=== PATIENT | female | born 2000 | race Caucasian/White ===

== ENCOUNTER 2020-12-21 20:54 | Emergency (ER) | payer OTHER ==
[2020-12-21 20:59] VITALS: RESP 18; TEMP 98.9
[2020-12-21] MEDS ORDERED: SODIUM CHLORIDE 0.9% 1,000 ML IV STA (21:18)
[2020-12-21] MEDS ORDERED: ONDANSETRON 4 MG/2 ML VIAL IVP STA (21:18)
[2020-12-21] MEDS ORDERED: HYDROmorphone 0.5 MG/0.5 ML SYRINGE IVP STA (21:18)
--- NOTE | 2020-12-21 21:34 | ED ---
Abdominal Pain HPI - General Chief Complaint: Abdominal Pain Stated Complaint: Abd pain Time Seen by Provider: 12/21/20 21:00 Source: patient Mode of arrival: ambulatory Limitations: no limitations - History of Present Illness Initial Comments: 20-year-old female patient presents to the emergency department today for evaluation of right lower quadrant abdominal pain. Patient states she's had pain on and off for the last week the pain has worsened significantly over the last couple of days. States she has had no appetite and mild nausea. Denies any constipation or diarrhea. Denies any fever or chills. Denies any hematuria, dysuria, urinary frequency, urinary urgency. Denies any known history of ovarian cyst. Denies abnormal vaginal bleeding or discharge. Denies concern for sexual transmitted infections. She does not currently take control. Patient denies any recent rash, cough, shortness of breath, chest pain, back pain, numbness, tingling, dizziness, weakness, headache, visual changes, or any other complaints. - Related Data Previous Rx's Medication Instructions Recorded Ibuprofen [Motrin] 600 mg PO Q8HR PRN #30 tab 12/22/20 Allergies Allergy/AdvReac Type Severity Reaction Status Date / Time methylphenidate HCl Allergy Unknown Verified 12/21/20 21:43 [From [employer]] Review of Systems ROS Statement: Those systems with pertinent positive or pertinent negative responses have been documented in the HPI. ROS Other: All systems not noted in ROS Statement are negative. Past Medical History Past Medical History: No Reported History History of Any Multi-Drug Resistant Organisms: None Reported Additional Past Surgical History / Comment(s): cleft lip repair Past Psychological History: ADD/ADHD, Anxiety Smoking Status: Current every day smoker Past Alcohol Use History: Occasional Past Drug Use History: None Reported General Exam Limitations: no limitations General appearance: alert, in no apparent distress, other (this is a well- developed, well-nourished adult female patient in no acute distress.) Eye exam: Present: normal appearance, PERRL, EOMI. Absent: scleral icterus, con junctival injection, periorbital swelling ENT exam: Present: normal exam, normal oropharynx, mucous membranes moist Respiratory exam: Present: normal lung sounds bilaterally. Absent: respiratory distress, wheezes, rales, rhonchi, stridor Cardiovascular Exam: Present: regular rate, normal rhythm, normal heart sounds. Absent: systolic murmur, diastolic murmur, rubs, gallop, clicks GI/Abdominal exam: Present: soft, tenderness (Right lower quadrant tenderness; periumbilical tenderness), normal bowel sounds. Absent: distended, guarding, rebound, rigid Neurological exam: Present: alert, oriented X3, CN II-XII intact Psychiatric exam: Present: normal affect, normal mood Skin exam: Present: warm, dry, intact, normal color. Absent: rash Course Vital Signs 12/21/20 12/22/20 20:57 00:39 Temperature 98.9 F Pulse Rate 90 90 Respiratory 18 18 Rate Blood Pressure 147/85 124/91 O2 Sat by Pulse 100 99 Oximetry Medical Decision Making - Medical Decision Making 20 year-old female patient presents to the emergency department for evaluation of lower abdominal pain. She was seen at urgent care and sent after they found right lower quadrant tenderness. Physical examination here did reveal periumbilical tenderness and right lower quadrant tenderness. Labs reviewed and showed elevated WBC count. CT obtained showed large ovarian cyst 7cm. US transvaginal were obtained and showed 6.5cm cyst. No visualization of the left ovary. Patient is resting comfortable in bed. She will be discharged to follow up with OBGYN as soon as possible. return parameters discussed in detail. She verbalizes understanding and agrees with this plan. Case discussed in detail my attending Dr. Villarreal who recommends discharge home with follow-up outpatient. - Lab Data Result diagrams: 12/21/20 21:37 12/21/20 21:37 Lab Results 12/21/20 12/21/20 12/21/20 Range/Units 21:37 21:37 21:37 WBC 11.2 H (3.8-10.6) k/uL RBC 4.48 (3.80-5.40) m/uL Hgb 11.9 (11.4-16.0) gm/dL Hct 35.8 (34.0-46.0) % MCV 79.9 L (80.0-100.0) fL MCH 26.6 (25.0-35.0) pg MCHC 33.3 (31.0-37.0) g/dL RDW 14.3 (11.5-15.5) % Plt Count 285 (150-450) k/uL MPV 7.8 Neutrophils % 69 % Lymphocytes % 22 % Monocytes % 6 % Eosinophils % 1 % Basophils % 1 % Neutrophils # 7.7 (1.3-7.7) k/uL Lymphocytes # 2.5 (1.0-4.8) k/uL Monocytes # 0.6 (0-1.0) k/uL Eosinophils # 0.1 (0-0.7) k/uL Basophils # 0.1 (0-0.2) k/uL Sodium (137-145) mmol/L Potassium (3.5-5.1) mmol/L Chloride (98-107) mmol/L Carbon Dioxide (22-30) mmol/L Anion Gap mmol/L BUN (7-17) mg/dL Creatinine (0.52-1.04) mg/dL Est GFR (CKD-EPI)AfAm (>60 ml/min/1.73 sqM) Est GFR (CKD-EPI)NonAf (>60 ml/min/1.73 sqM) Glucose (74-99) mg/dL Plasma Lactic Acid Roderick (0.7-2.0) mmol/L Calcium (8.4-10.2) mg/dL Total Bilirubin (0.2-1.3) mg/dL AST (14-36) U/L ALT (4-34) U/L Alkaline Phosphatase (38-126) U/L Total Protein (6.3-8.2) g/dL Albumin (3.5-5.0) g/dL Lipase (23-300) U/L Urine Color Light Yellow Urine Appearance Cloudy H (Clear) Urine pH 6.5 (5.0-8.0) Ur Specific Moran 1.013 (1.001-1.035) Urine Protein Negative (Negative) Urine Glucose (UA) Negative (Negative) Urine Ketones Negative (Negative) Urine Blood Negative (Negative) Urine Nitrite Negative (Negative) Urine Bilirubin Negative (Negative) Urine Urobilinogen <2.0 (<2.0) mg/dL Ur Leukocyte Esterase Small H (Negative) Urine RBC 2 (0-5) /hpf Urine WBC 4 (0-5) /hpf Ur Squamous Epith Cells 6 H (0-4) /hpf Urine Bacteria Few H (None) /hpf Urine Yeast (Budding) Few H (None) /hpf Urine HCG, Qual Not Detected (Not Detectd) 12/21/20 12/21/20 Range/Units 21:37 21:37 WBC (3.8-10.6) k/uL RBC (3.80-5.40) m/uL Hgb (11.4-16.0) gm/dL Hct (34.0-46.0) % MCV (80.0-100.0) fL MCH (25.0-35.0) pg MCHC (31.0-37.0) g/dL RDW (11.5-15.5) % Plt Count (150-450) k/uL MPV Neutrophils % % Lymphocytes % % Monocytes % % Eosinophils % % Basophils % % Neutrophils # (1.3-7.7) k/uL Lymphocytes # (1.0-4.8) k/uL Monocytes # (0-1.0) k/uL Eosinophils # (0-0.7) k/uL Basophils # (0-0.2) k/uL Sodium 136 L (137-145) mmol/L Potassium 4.0 (3.5-5.1) mmol/L Chloride 102 (98-107) mmol/L Carbon Dioxide 25 (22-30) mmol/L Anion Gap 9 mmol/L BUN 11 (7-17) mg/dL Creatinine 1.07 H (0.52-1.04) mg/dL Est GFR (CKD-EPI)AfAm 86 (>60 ml/min/1.73 sqM) Est GFR (CKD-EPI)NonAf 75 (>60 ml/min/1.73 sqM) Glucose 99 (74-99) mg/dL Plasma Lactic Acid Roderick 1.0 (0.7-2.0) mmol/L Calcium 9.4 (8.4-10.2) mg/dL Total Bilirubin 0.3 (0.2-1.3) mg/dL AST 16 (14-36) U/L ALT 11 (4-34) U/L Alkaline Phosphatase 64 (38-126) U/L Total Protein 6.9 (6.3-8.2) g/dL Albumin 4.0 (3.5-5.0) g/dL Lipase 91 (23-300) U/L Urine Color Urine Appearance (Clear) Urine pH (5.0-8.0) Ur Specific Moran (1.001-1.035) Urine Protein (Negative) Urine Glucose (UA) (Negative) Urine Ketones (Negative) Urine Blood (Negative) Urine Nitrite (Negative) Urine Bilirubin (Negative) Urine Urobilinogen (<2.0) mg/dL Ur Leukocyte Esterase (Negative) Urine RBC (0-5) /hpf Urine WBC (0-5) /hpf Ur Squamous Epith Cells (0-4) /hpf Urine Bacteria (None) /hpf Urine Yeast (Budding) (None) /hpf Urine HCG, Qual (Not Detectd) - Radiology Data Radiology results: report reviewed, image reviewed Two-view x-ray of the abdomen is obtained. A prescription entirety. Impression by Dr. Negrete shows nonacute abdomen. CT abdomen and pelvis with contrast was obtained. Report was reviewed in its entirety. Impression by Dr. Negrete shows large cyst in the pelvis is probably from the left ovary. Normal appendix. No renal stone or obstruction. Ultrasound of the pelvis is obtained. Report reviewed in its entirety. Impression by Dr. Charles shows left ovary is not visualized. There are 6.5 cm system left adnexal region presumably ovarian etiology which is worrisome based on size criteria. Magnetic resonance imaging of the pelvis were provided additional information to add agree with concern. At the very least reimaging in 2 months. Fluids right ovary is noted. Minimal free fluid in the right adnexa extending to the cul-de-sac. Disposition Clinical Impression: Ovarian cyst Disposition: HOME SELF-CARE Condition: Good Instructions (If sedation given, give patient instructions): Ovarian Cyst (ED) Additional Instructions: Take pain medication as directed. Follow-up with the primary care physician for recheck in 1-2 days. Follow-up with [facility] for recheck as soon as possible. Return to the emergency department for any new, worsening, or concerning symptoms. Prescriptions: Ibuprofen [Motrin] 600 mg PO Q8HR PRN #30 tab PRN Reason: Pain Is patient prescribed a controlled substance at d/c from ED?: No Referrals: Sarah Mckenzie MD [STAFF PHYSICIAN] - 1-2 days Time of Disposition: 01:01
[2020-12-21 21:40] VITALS: PULSE 90
[2020-12-21 21:57] LABS: Basophils # (A) 0.1 k/uL (0-0.2); Basophils % (A) 1 %; Eosinophils # (A) 0.1 k/uL (0-0.7); Eosinophils % (A) 1 %; HCT 35.8 % (34.0-46.0); HGB 11.9 gm/dL (11.4-16.0); Lymphocytes # (A) 2.5 k/uL (1.0-4.8); Lymphocytes % (A) 22 %; MCH 26.6 pg (25.0-35.0); MCHC 33.3 g/dL (31.0-37.0); MCV 79.9 fL (80.0-100.0); Mean Platelet Volume 7.8; Monocytes # (A) 0.6 k/uL (0-1.0); Monocytes % (A) 6 %; Neutrophils # (A) 7.7 k/uL (1.3-7.7); Neutrophils % (A) 69 %; Platelet Count 285 k/uL (150-450); RBC 4.48 m/uL (3.80-5.40); RDW 14.3 % (11.5-15.5); WBC 11.2 k/uL (3.8-10.6)
--- NOTE | 2020-12-21 22:01 | XR ---
EXAMINATION TYPE: XR KUB DATE OF EXAM: 12/21/2020 COMPARISON: NONE HISTORY: Pain TECHNIQUE: 2 views upright FINDINGS: Bowel gas pattern is normal. There is no sign of intestinal obstruction or pneumoperitoneum . Fecal pattern is normal. Lung bases are clear. There are no pathologic calcifications over the kidn eys. IMPRESSION: Nonacute abdomen.
[2020-12-21 22:04] LABS: Appearance,Urine Cloudy (Clear); Bacteria,Urine Few /hpf; Bilirubin,Urine Negative (Negative); Blood,Urine Negative (Negative); Budding Yeast,Urine Few /hpf; Color,Urine Light Yellow; Glucose,Urine (UA) Negative (Negative); Ketones,Urine Negative (Negative); Leukocyte Esterase,Urine Small (Negative); Nitrite,Urine Negative (Negative); PH, Urine 6.5 (5.0-8.0); Protein,Urine Negative (Negative); RBC,Urine 2 /hpf (0-5); Specific Gravity,Urine 1.013 (1.001-1.035); Squamous Epithelial Cell,Urine 6 /hpf (0-4); Urobilinogen,Urine <2.0 mg/dL (<2.0); WBC,Urine 4 /hpf (0-5)
[2020-12-21 22:09] LABS: Calcium 9.4 mg/dL (8.4-10.2); Total Bilirubin 0.3 mg/dL (0.2-1.3); Total Protein 6.9 g/dL (6.3-8.2)
--- NOTE | 2020-12-21 23:18 | CT ---
EXAMINATION TYPE: CT abdomen pelvis w con DATE OF EXAM: 12/21/2020 COMPARISON: None HISTORY: pain Right lower quadrant pain CT DLP: 883.6 mGycm Automated exposure control for dose reduction was used. CONTRAST: Performed with IV Contrast, patient injected with 100 mL of Isovue 300. Images obtained from the diaphragm to the floor the pelvis with IV contrast. Lung bases are clear of infiltrate. There is mild subsegmental atelectasis at the posterior lung base s. There is no pleural effusion. Heart size is normal. There is no pericardial effusion. There is sma ll hiatal hernia. Liver and spleen are intact. The bile ducts are not dilated. There is no pancreatic mass. Gallbladder appears normal. There is no adrenal mass. Kidneys show satisfactory contrast opacification. There is no hydronephrosi s. Ureters are not dilated. Bladder distends smoothly. There is thin walled 7 cm cyst in the pelvis i n the midline and towards left side consistent with an ovarian cyst. Uterus is anteverted. There is n o free fluid in the pelvis. There is no mesenteric edema. There is no ascites or free air. There is no bowel obstruction. Appendi x is lateral and appears normal. Appendix is partly filled with air and best seen on the coronal imag es. Lumbar vertebra have normal alignment. Disc spaces are normal. Posterior elements are intact. There i s no compression fracture. Bony pelvis is intact. IMPRESSION: Large cyst in the pelvis is probably are from the left ovary. Normal appendix. No renal stone or obst ruction.
[2020-12-22 00:39] VITALS: BP 124/91
--- NOTE | 2020-12-22 00:41 | US ---
EXAM: US Pelvis Transvaginal and US Duplex Arterial/Venous of the Pelvis, Complete CLINICAL HISTORY: ITS.REASON US Reason: Lg Ovarian cyst TECHNIQUE: Real-time transvaginal pelvic ultrasound with image documentation. Transvaginal imaging was used for better evaluation of the endometrium and adnexa. Real-time duplex ultrasound scan of the arterial and venous flow of the pelvis with color Doppler flow and spectral waveform analysis. COMPARISON: No previous study. FINDINGS: Uterus/cervix: The uterus measures 7.2 x 3.6 x 4.3 cm. Endometrial stripe measures 0.8 cm. A 0.6 cm nabothian cyst is noted. No myometrial mass. Right ovary: The right ovary measures 3.3 x 1.7 x 1.5 cm. Left ovary: Left ovary is not well visualized. A 6.2 x 6.5 x 5.2 cm simple appearing cyst is noted within the left adnexal region of uncertain etiology. This cyst is worrisome based on size criteria. Free fluid: Minimal simple free fluid within the right adnexa extending to the posterior cul-de-sac. Bladder: Empty bladder which cannot be evaluated with this probe. IMPRESSION: 1. Left ovary is not visualized. 2. There is a 6.5 cm cyst in the left adnexal region presumably of ovarian etiology which is worrisome based on size criteria. 3. Magnetic resonance imaging of the pelvis will provide additional information if there is a high degree of concern. At the very least, reimaging in 2 months is advised for reassessment. 4. Flow to the right ovary is noted. 5. Minimal free fluid the right adnexa extending to the cul-de-sac.
[2020-12-22] MEDS ORDERED: ACET/COD 300 MG/30 MG STARTER PACK 6 TAB BTL PO STA (01:02)
== END 2020-12-22 01:15 | disposition home or self-care (01) ==
LOC: EC 20:54
DX: N83.201 Unspecified ovarian cyst, right side (principal); D72.829 Elevated white blood cell count, unspecified; F17.200 Nicotine dependence, unspecified, uncomplicated; Z88.8 Allergy status to other drugs, medicaments and biological substances
CPT/HCPCS: 36415; 80053; 83605; 83690; 85025; 81001; 81025; 74018; 74177; 99284; 96374; 96375; 96361 ×3; J2405; J1170; Q9967; 76830; 93975

== ENCOUNTER → 2022-09-15 | Outpatient (CLI) | payer BC, OTHER ==
[2022-09-15 15:37] VITALS: BP 120/80; PULSE 94; RESP 16; TEMP 98.5; BMI 40.1
--- NOTE | 2022-09-15 16:09 | P.HPBAR ---
Bariatric H&P - History & Physicial H&P Date: 09/15/22 History & Physicial: Visit/CC: Initial Visit Patient initial contact: Initial weight: 87.09 kg Initial weight in pounds: 192.00 Height: 4 ft 10 in Initial BMI: 40.1 Last weight: Current weight: 87.09 kg Current weight in pounds: 192.00 Current BMI: 40.1 [place] body weight (based on NIH guidelines): 40.823 kg Excess body weight loss: 0.0% The patient is a 22 year-old F who presents for Bariatric Assessment. 22-year-old female here today for bariatric evaluation. Patient is interested in sleeve gastrectomy. Her mother had previous lap band which was converted to sleeve. Current BMI 40.1. Patient complains of comorbidities including GERD and migraines. She does use tobacco in the form of vaping. No history of DVT or dysphagia in the past. No previous EGD. Patient states she does take omeprazole 40 mg once daily. Surgical history includes cleft lip repair 2, wisdom teeth, left salpingo-oophorectomy. Review of Systems The patient denies any acute changes in vision or hearing, no dysphagia or odynophagia, no chest pain or shortness of breath, no dysuria or hematuria, no headache, no runny nose, no rectal bleeding or melena, no unexplained weight loss Past Medical History Past Medical History: No Reported History History of Any Multi-Drug Resistant Organisms: None Reported Additional Past Surgical History / Comment(s): cleft lip repair Smoking Status: Current every day smoker Surgical - Exam Vital Signs Temp Pulse Resp BP 98.5 F 94 16 120/80 09/15/22 15:35 09/15/22 15:35 09/15/22 15:35 09/15/22 15:35 Physical exam: General: Well-developed, well-nourished HEENT: Normocephalic, sclerae nonicteric Abdomen: Nontender, nondistended Extremities: No edema Neuro: Alert and oriented Bariatric Assessment & Plan (1) Morbid obesity Narrative/Plan: 22-year-old female with morbid obesity and comorbidities including GERD. The significance of preoperative reflux symptoms with weight loss surgery reviewed in detail. Patient would have a slightly higher risk of uncontrolled reflux following sleeve gastrectomy. Patient states she is aware of that. We discussed that the incidence of postoperative reflux would be less with the gastric bypass and that uncontrolled reflux in the setting of sleeve gastrectomy could require conversion to gastric bypass in the future. Patient is not interested in the long-term risks of gastric bypass at this time however. Patient will require preoperative EGD. Await psychiatric evaluation and medical clearance letter. Patient will follow up with me after the upper endoscopy is performed. The risks of bleeding, infection, stenosis, stricture, leak, abscess, fistula formation, peritonitis, poor weight loss, reflux, vomiting, conversion to an open procedure, aborting sleeve gastrectomy, HI, PE, DVT, and were discussed. The patient understands and wishes to proceed. Status: Acute Bariatric Checklist Checklist: Plan: Checklist: EGD: 1. Hiatal hernia: 2. H. Pylori: HgbA1c: Vitamin D: Smoking: Never smoker Primary care physician referral: Magdi Psychiatry clearance: Cardiology clearance: Sleep study: Diet journal: VTE risk score: VTE risk level: Rehab needs at discharge:
[2022-09-15 22:31] LABS: HCT 33.3 % (37.2-46.3); HGB 10.7 g/dL (12.0-15.0); MCH 25.7 pg (27.0-32.0); MCHC 32.1 g/dL (32.0-37.0); Mean Platelet Volume 10.6 fL (9.5-12.2); NRBC Per 100 WBC 0 /100 WBCS (0.0-0.0); Platelet Count 294 X 10*3/uL (140-440); RBC 4.16 X 10*6/uL (4.10-5.20); WBC 10.69 X 10*3/uL (4.50-10.00)
[2022-09-15 23:31] LABS: ALT 11 U/L (8-44); AST 8 U/L (13-35); African American GFR (CKD) 148.3 (60.0-200.0); Albumin 3.9 g/dL (3.8-4.9); Albumin/Globulin Ratio 1.59 (1.60-3.17); Alkaline Phosphatase 82 U/L (41-126); BUN/Creat Ratio 20.07 Ratio (12.00-20.00); Blood Urea Nitrogen 12.2 mg/dL (9.0-27.0); Calcium 8.9 mg/dL (8.7-10.3); Carbon Dioxide 22.1 mmol/L (20.0-27.5); Chloride 105 mmol/L (96-109); Globulin 2.5 g/dL (1.6-3.3); Glucose 111 mg/dL (70-110); Iron 29 ug/dL (50-170); Non-African American GFR(CKD) 127.9 (60.0-200.0); Potassium 3.8 mmol/L (3.5-5.5); Sodium 138 mmol/L (135-145); Total Bilirubin <0.15 mg/dL (0.30-1.20); Total Protein 6.4 g/dL (6.2-8.2)
== END ==
LOC: BARWHC3 15:13
PROVIDERS: ATTEND Surgery
DX: E66.01 Morbid (severe) obesity due to excess calories (principal); K90.89 Other intestinal malabsorption; E55.9 Vitamin D deficiency, unspecified; Z68.41 Body mass index [BMI] 40.0-44.9, adult; Z88.8 Allergy status to other drugs, medicaments and biological substances
CPT/HCPCS: 80053; 80323; 82306; 82607; 82746; 83036; 83540; 84425; 85027; 93005; 99202